=== PATIENT | female | born 1995 | race African-American/Black ===

== ENCOUNTER 2021-02-26 17:47 | Emergency (ER) | payer SELFPAY ==
[~2021-02-26] VITALS: Ht 157.5 cm; Wt 80.4 kg
--- NOTE | 2021-02-26 18:22 | NUR ---
ASSUMED CARE OF PATIENT. PATIENT REPORTS SHE DRANK SOME ALCOHOL LAST NIGHT AND HAS NOT BEEN FEELING WELL TODAY. PT REPORTS SHE WAS DRIVING BACK FROM [place] TO [place] WHEN TOUNGE STARTED TO FEEL LIKE IT WAS SWELLING. PT ALSO REPORTS SOME ANXIETY WITH BILATERAL HAND TINGLING. PT REPORTS BASELINE RIGHT ARM IS ALWAYS HAS DEMINISHED SENSATION DUE TO A SURGERY SHE HAD. VS STABLE. ANA RANDOLPH STUDENT IN ROOM. 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 NSR NOTED. NO AIRWAY COMPROMISE. WILL CONTINUE TO MONITOR.
[2021-02-26] MEDS ORDERED: MAALOX/HYOSCYAMINE/LIDOCAINE 45 ML BTL ONE (18:50)
--- NOTE | 2021-02-26 18:57 | NUR ---
TASK RN: PT RESTING ON GURNEY. NADN. ROMEOS. MEDICATED PER DEC.
[2021-02-26] MEDS ORDERED: MAALOX/HYOSCYAMINE/LIDOCAINE 45 ML BTL PO ONE (19:00)
[2021-02-26 19:44] VITALS: BP 114/63
--- NOTE | 2021-02-26 19:44 | NUR ---
PT REPORTS HER TOUNGE NO LONGER FEELS SWOLLEN, AND THE TINGLING IN THE HANDS HAS WENT AWAY. VS STABLE. NO ACUTE DISTRESS NOTED. PT READY FOR DC.
== END 2021-02-26 19:46 | disposition home or self-care (01) ==
LOC: ED 18:00
DX: K29.20 Alcoholic gastritis without bleeding (principal); R00.0 Tachycardia, unspecified; F17.210 Nicotine dependence, cigarettes, uncomplicated
CPT/HCPCS: 93005; 99283